=== PATIENT | male | born 1940 | race Caucasian/White ===

== ENCOUNTER → 2016-08-07 | Outpatient (CLI) | payer MEDICARE, OTHER ==
[~2016-08-07] MED LIST: AMARYL PO; ATENOLOL50 MG PO; B-121000 MC1 PO; CARBIDOPA-LEVO1 EAC3 PO; CARBIDOPA-LEVO1 EAC7 PO; CORGARD PO; CYANOCOBALAM1000 MCG PO; DIABETIC MED INJ; DIOVAN160 MG PO; DIOVAN320 MG PO; ESCITALOPRAM OX10 MG PO; FLOMAX0.4 M1 PO; FUROSEMIDE40 MG PO; GLUCOPHAGE500 MG PO; HYZAAR 100-12.1 EACH PO; IBUPROFEN400 MG PO; INVOKANA100 MG PO; JANUMET XR 1001 EACH PO; JANUMET XR 50-1 EAC1 PO; LEXAPRO PO; LIDODERM30 EA TOP; LOSARTAN POTASS50 MG PO; LOSARTAN-HCTZ1 EAC2 PO; MULTI VITAMIN1 EACH PO; MULTIVITAMINS1 EAC3 PO; NADOLOL20 MG PO; NEPHROCAPS1 CAP; NEPHROCAPS1 CAP PO; OMEPRAZOLE20 M1 PO; OMEPRAZOLE40 M1 PO; PANTOPRAZOLE SO40 MG PO; PATIENT'S PHARMACY; PRILOSEC PO; RANITIDINE HCL150 M1 PO; SIMVASTATIN40 MG PO; SSKI1 GM/1 ML PO; TRULICITY0.75 MG/0.; TRULICITY1.5 MG/0.5 SUBQ; TYLENOL #3 PO; VITAL-D RX TABL1 TAB PO; VITAMIN B122500 MCG PO; VITAMIN D2000 UNIT PO; VITAMIN D31000 UNI1 PO; ZITHROMAX PO; ZOCOR PO; [UNRECOGNIZED DRUG - OTHER] PO
--- NOTE | ~2016-08-07 | MR17 ---
[facility] A Service of [facility] RADIOLOGY TEXT RESULTS PATIENT: GEOVANNA ENG LOCATION: [facility] : 42 UNIT #: [id number] AGE: [address]: Joseph Fields II, MD SEX: M ORDER DR: [id number] [facility] [address] [place], [place] [address] [id number] O MR#: [id number] Acc #: [id number] NAME: GEOVANNA ENG. : 1940 SEX: M STUDY DATE/TIME: 08/07/2016 17:09 UNIT: [facility] ROOM: STUDY DESCRIPTION: MR Brain WWo Contrast Attending Physician: Joseph Fields II., M.D. Referring Physician: Joseph Fields II., M.D. Ordering Physician: Joseph Fields II., M.D. Primary Care Physician: Ngozi Davenport M.D. MRI CENTER REPORT This report is preliminary unless electronic signature is present. EXAM MRI of the brain without contrast dated 08/07/2016. COMPARISON None. HISTORY Diagnosed with Parkinson's disease over a month ago. Shaking hands, right foot drags. FINDINGS Multisequence, multiplanar imaging of the brain was obtained with and without contrast. GFR measured greater than 60. 20 mL of MultiHance was administered intravenously. Nonspecific hyperintense T2-signal lesions are noted in the brain involving the white matter. No acute stroke, space-occupying intracranial mass, mass effect, midline shift or hydrocephalus is seen. Thick slices through the sella with the pituitary gland and pineal region are unremarkable. Degenerative changes are noted in the cervical spine. S-shaped nasal septal deviation is seen. There is paranasal sinus mucosal thickening, severe in the right maxillary antrum. Mild bilateral mastoid mucosal thickening is also seen. Imaged orbits with the ocular structures do not demonstrate any significant abnormality. IMPRESSION Scattered hyperintense T2-signal lesions are noted in the white matter, likely related to mild chronic microvascular ischemic change or migraine, based on age and statistics. S-shaped nasal septal deviation is seen with paranasal sinus mucosal thickening, worst in the right maxillary antrum. Correlate with sinusitis. STS. [facility] A Service of [facility] & [facility] RADIOLOGY TEXT RESULTS PATIENT: GEOVANNA ENG LOCATION: [facility] : 42 UNIT #: [id number] AGE: [address]: Joseph Fields II, MD SEX: M ORDER DR: Dictated by... Bee Javier M.D. THIS IS AN ELECTRONICALLY VERIFIED REPORT Bee Javier M.D. at 08/09/2016 3:03 PM CPR/psc TD: 08/07/2016 22:14 JOB #: [id number] MRI CENTER REPORT Page 1 of 1 COPY
[2016-08-07 17:41] LABS: POC - CREATININE 1.24 mg/dL (0.64-1.27); POC - GFR >60.0 mL/min (>60)
== END | disposition home or self-care (01) ==
LOC: CMRI 16:34
PROVIDERS: Psychiatry & Neurology Neurology
DX: G20 Parkinson's disease (principal); G93.89 Other specified disorders of brain; J34.2 Deviated nasal septum; J34.89 Other specified disorders of nose and nasal sinuses
CPT/HCPCS: 70553; 82565; A9577

== ENCOUNTER → 2016-08-30 | Day surgery (SDC) | payer MEDICARE, OTHER ==
--- NOTE | ~2016-08-30 | OR ---
Unit #: [id number] #: [id number] Patient: GEOVANNA ENG [id number] [address] [address] [id number] O MR#: [id number] NAME: GEOVANNA ENG. ROOM: Date of Procedure: 08/30/2016 Admission Date: 08/30/2016 Surgeon: Attila Moore M.D. : 1940 Attending Physician: Attila Moore M.D. Primary Care Physician: gNozi Davenport M.D. OPERATIVE REPORT PROCEDURES PERFORMED Esophagogastroduodenoscopy with variceal banding and colonoscopy with snare polypectomy. INDICATIONS FOR PROCEDURE The patient with esophageal varices with liver cirrhosis, undergoing surveillance upper endoscopy; also with history of polyps in the past, undergoing colonoscopy. MEDICATIONS Monitored anesthesia. POSTOPERATIVE FINDINGS 1. Grade 3 varices. Two bands were placed on the distal third. 2. Hiatal hernia. 3. Diffuse fslinqce-gr-nknqwf gastropathy. 4. Normal duodenum and distal duodenum. 5. Polyp, transverse colon x1; and descending colon x1, both snared and sent for histopathology. 6. Diverticulosis. 7. Internal hemorrhoids. PLAN Follow up on pathology report. Repeat upper endoscopy in 1 year. Repeat colonoscopy in 5 years. DESCRIPTION OF PROCEDURE The patient was explained of the procedure, risks, and benefits along with the risks and benefits of anesthesia. He was brought to the endoscopy room. Propofol anesthesia was given. Bite block was placed. The scope was passed down the mouth into the esophagus, stomach, duodenum, and distal duodenum. Findings as described. Banding was carried out successfully. Gently, the scope was pulled out. He tolerated it well. At this time, he was turned around and repositioned for colonoscopy. Rectal exam was done, which was normal. Colonoscope was lubricated, passed up the rectum, advanced under direct vision all the way to the cecum. Cecum was identified by ileocecal valve and appendiceal orifice. Two polyps were seen as described. I retroflexed in the rectum, internal hemorrhoids noted. Gently, the scope was pulled out. He tolerated it well. Unit #: [id number] #: [id number] Patient: GEOVANNA ENG Dictated by... Jayda Major/preet TD: 08/30/2016 22:44 JOB #: [id number] OPERATIVE REPORT Page 1 of 1 X Attila Moore MD X PROCEDURE OPERATIVE NOTE
== END | disposition home or self-care (01) ==
LOC: COPS 08:42
DX: Z12.11 Encounter for screening for malignant neoplasm of colon (principal); D12.4 Benign neoplasm of descending colon; K63.5 Polyp of colon; K74.60 Unspecified cirrhosis of liver; I85.10 Secondary esophageal varices without bleeding; K44.9 Diaphragmatic hernia without obstruction or gangrene; K31.9 Disease of stomach and duodenum, unspecified; K57.30 Diverticulosis of large intestine without perforation or abscess without bleeding; K64.8 Other hemorrhoids; E11.9 Type 2 diabetes mellitus without complications; I10 Essential (primary) hypertension; G20 Parkinson's disease; K21.9 Gastro-esophageal reflux disease without esophagitis; Z86.010 Personal history of colon polyps; Z87.891 Personal history of nicotine dependence; Z87.442 Personal history of urinary calculi; Z87.01 Personal history of pneumonia (recurrent); Z79.84 Long term (current) use of oral hypoglycemic drugs; Z79.899 Other long term (current) drug therapy; Z90.49 Acquired absence of other specified parts of digestive tract; Z98.890 Other specified postprocedural states
CPT/HCPCS: 82947; 88305

== ENCOUNTER 2016-12-17 12:15 | Emergency (ER) | payer MEDICARE, OTHER ==
[~2016-12-17] VITALS: Ht 170.2 cm; Wt 91.6 kg
[~2016-12-17 12:15] MED LIST changes: -CARBIDOPA-LEVO1 EAC3 PO; -CORGARD PO; -ESCITALOPRAM OX10 MG PO; -IBUPROFEN400 MG PO; -LOSARTAN POTASS50 MG PO; -MULTIVITAMINS1 EAC3 PO; -PATIENT'S PHARMACY; -PRILOSEC PO; -TRULICITY0.75 MG/0.; -VITAMIN B122500 MCG PO; -VITAMIN D31000 UNI1 PO; -ZOCOR PO
[2016-12-17 12:45] LABS: URINE SOURCE CLEAN CATCH
[2016-12-17 12:47] LABS: URINE APPEARANCE CLEAR; URINE BILIRUBIN NEG (NEG); URINE BLOOD NEG (NEG); URINE COLOR YELLOW; URINE GLUCOSE NEG (NORM); URINE KETONE TRACE (NEG); URINE LEUKOCYTE ESTERASE TRACE (NEG); URINE NITRATE NEG (NEG); URINE PH 5.5 (5-8); URINE PROTEIN NEG (NEG); URINE SPECIFIC GRAVITY >=1.030 (1.003-1.035)
[2016-12-17 12:48] LABS: MICRO INDICATED? YES
[2016-12-17 12:56] LABS: CULTURE INDICATED? NO; URINE BACTERIA NEG (NEG)
[2016-12-17 12:57] LABS: URINE MUCUS PRESENT; URINE SQUAMOUS EPITHELIAL CELL MODERATE /[HPF]
[2017-01-03] MEDS ORDERED: LOSARTAN-HCTZ1 EAC2 PO (15:45)
[2017-01-03] MEDS ORDERED: ZOCOR PO (15:45)
[2017-01-03] MEDS ORDERED: PATIENT'S PHARMACY (15:45)
[2017-01-03] MEDS ORDERED: CORGARD PO (15:45)
[2017-01-03] MEDS ORDERED: PRILOSEC PO (15:45)
[2017-01-03] MEDS ORDERED: JANUMET XR 1001 EACH PO (15:45)
[2017-01-03] MEDS ORDERED: MULTIVITAMINS1 EAC3 PO (15:46)
[2017-01-03] MEDS ORDERED: VITAMIN D31000 UNI1 PO (15:46)
[2017-01-03] MEDS ORDERED: VITAMIN B122500 MCG PO (15:46)
[2017-01-03] MEDS ORDERED: ESCITALOPRAM OX10 MG PO (15:46)
[2017-01-03] MEDS ORDERED: TRULICITY0.75 MG/0. (15:46)
[2017-01-03] MEDS ORDERED: CARBIDOPA-LEVO1 EAC3 PO (15:47)
[2017-01-04] MEDS ORDERED: IBUPROFEN400 MG PO (17:25)
[2017-01-04] MEDS ORDERED: LOSARTAN POTASS50 MG PO (17:26)
== END 2016-12-17 13:57 | disposition home or self-care (01) ==
LOC: SED 12:15
PROVIDERS: Emergency Medicine
DX: N30.01 Acute cystitis with hematuria (principal); Z87.442 Personal history of urinary calculi; Z79.899 Other long term (current) drug therapy
CPT/HCPCS: 81003; 99283